=== PATIENT | female | born 1995 | race Caucasian/White ===

== ENCOUNTER 2021-02-22 10:22 | Emergency (ER) | payer MEDICAID ==
[~2021-02-22] VITALS: Ht 165.1 cm; Wt 94.8 kg
--- NOTE | 2021-02-22 10:36 | NUR ---
The patient bibs for lac on the occipital area s/p slipped and fall. Rates pain 4/10. Patient is alert and oriented x4. Denies change in vision. Respiration regular and unlabored. Will continue to monitor the patient.
--- NOTE | 2021-02-22 10:40 | NUR ---
The patient is taken to CT
--- NOTE | 2021-02-22 10:46 | NUR ---
The patient is back from CT
[2021-02-22] MEDS ORDERED: LIDOCAINE 1%-EPI 1:100,000 20 ML VIAL TP ONE (11:00)
[2021-02-22] MEDS ORDERED: TDAP [DIPH/PERTUSSIS/TET] 0.5 ML VIAL IM ONE (11:00)
[2021-02-22] MEDS ORDERED: LIDOCAINE 1%-EPI 1:100,000 20 ML VIAL ONE (11:06)
[2021-02-22 11:38] VITALS: BP 124/75
--- NOTE | 2021-02-22 11:38 | NUR ---
Patient discharged to home in stable condition. Written and verbal after care instructions given. Patient verbalizes understanding of instruction.
== END 2021-02-22 11:38 | disposition home or self-care (01) ==
LOC: ER 10:27
DX: S01.01XA Laceration without foreign body of scalp, initial encounter (principal); S09.8XXA Other specified injuries of head, initial encounter; W01.0XXA Fall on same level from slipping, tripping and stumbling without subsequent striking against object, initial encounter; Y93.H2 Activity, gardening and landscaping; Y92.89 Other specified places as the place of occurrence of the external cause; Y99.8 Other external cause status
CPT/HCPCS: 12002; 70450; 99284; A6403; J3490

== ENCOUNTER 2021-02-24 12:31 | Emergency (ER) | payer MEDICAID ==
[~2021-02-24] VITALS: Ht 165.1 cm; Wt 94.8 kg
[2021-02-24 12:38] VITALS: BP 110/61
--- NOTE | 2021-02-24 12:41 | NUR ---
The patient bibs for head nina check x 2 days. Denies pain. No bleeding or discharge noted. Will continue to monitor the patient.
--- NOTE | 2021-02-24 12:53 | NUR ---
Patient discharged to home in stable condition. Written and verbal after care instructions given. Patient verbalizes understanding of instruction.
== END 2021-02-24 12:54 | disposition home or self-care (01) ==
LOC: ER 12:34
DX: S01.01XD Laceration without foreign body of scalp, subsequent encounter (principal); X58.XXXD Exposure to other specified factors, subsequent encounter

== ENCOUNTER 2021-03-01 13:03 | Emergency (ER) | payer MEDICAID ==
[~2021-03-01] VITALS: Ht 165.1 cm; Wt 95.3 kg
[2021-03-01 13:03] VITALS: BP 120/71
== END 2021-03-01 13:33 | disposition home or self-care (01) ==
LOC: ER 13:06
DX: S01.01XD Laceration without foreign body of scalp, subsequent encounter (principal); X58.XXXD Exposure to other specified factors, subsequent encounter

== ENCOUNTER 2021-10-19 11:07 | Emergency (ER) | payer MEDICAID ==
[~2021-10-19] VITALS: Ht 165.1 cm; Wt 93.9 kg
[2021-10-19] MEDS ORDERED: IBUP-1955 PO (12:04)
[2021-10-19 12:10] VITALS: BP 130/70
== END 2021-10-19 12:08 | disposition home or self-care (01) ==
LOC: ER 11:07
DX: M77.8 Other enthesopathies, not elsewhere classified (principal); Z79.899 Other long term (current) drug therapy
CPT/HCPCS: 73080-TC